=== PATIENT | female | born 1955 | race Caucasian/White ===

== ENCOUNTER → 2019-05-15 20:10 | Outpatient (CLI) | payer OTHER, SELFPAY ==
--- NOTE | 2019-05-15 | DI.RAD.S_ITS ---
PROCEDURE: XR LUMBAR SPINE 2-3V INDICATIONS: DORSALGIA TECHNIQUE: 3 views of the lumbar spine were acquired. COMPARISON: None. FINDINGS: Bones: There are 5 lumbar-type vertebral bodies. The lowest intervertebral disk space is designated as L5-S1. The vertebral body heights are well-maintained without evidence to suggest an acute compression fracture. The bone mineralization is within normal limits. Mild straightening of the normal lumbar lordosis is present without spondylolisthesis. Moderate multilevel degenerative changes of the lumbar spine are more prominent involving the lower lumbar facet joints. There also are moderate degenerative changes of the sacroiliac joints (left greater than right). Soft tissues: Calcifications within the pelvis probably represent phleboliths, but are not adequately evaluated. Surgical clips are seen within the right upper quadrant, suggesting prior cholecystectomy. Otherwise, the soft tissues of the imaged abdomen and pelvis are within normal limits. IMPRESSION: Moderate degenerative changes of the lumbar spine are more prominent involving the lower lumbar levels. Dictated by: Odilon Baig M.D. on 05/16/2019 at 9:08 Approved by: Odilon Baig M.D. on 05/16/2019 at 9:10
== END ==
PROVIDERS: Family Provider Internal Medicine; PCP Family Medicine; Visit Provider Family Medicine
DX: M54.9 Dorsalgia, unspecified (principal); M47.816 Spondylosis without myelopathy or radiculopathy, lumbar region
CPT/HCPCS: 72100

== ENCOUNTER → 2021-03-12 19:30 | Outpatient (CLI) | payer OTHER, SELFPAY ==
--- NOTE | 2021-03-12 19:33 | DI.MRI.S_ITS ---
PROCEDURE: MR LUMBAR SPINE WO CON INDICATIONS: SCIATICA LEFT SIDE TECHNIQUE: Noncontrast sagittal T1 spin echo and T2 fast echo, sagittal STIR, axial T1 and T2 fast spin echo through the lumbar spine. In cases with scoliosis, additional coronal T2 fast spin echo may be performed. COMPARISON: [facility], CR, XR LUMBAR SPINE 2-3V, 05/15/2019, 20:21. FINDINGS: Image quality: Excellent. Alignment and Curvature: There is trace retrolisthesis of L3 on L4. Bone Marrow: Marrow is of normal overall signal. Minimal multilevel degenerative endplate changes are. No acute vertebral body compression fractures. Spinal Cord: Conus medullaris terminates at the L1 level. Visualized cord demonstrates normal signal and size. Paraspinous Soft Tissues: No paravertebral masses. Discs: Moderate to severe desiccation is present throughout the lumbar spine. L1-L2: Mild disc bulge with mild spinal stenosis. No foraminal narrowing. Facet and ligamentum flavum hypertrophy are present. L2-L3: Mild disc bulge with cwfg-md-fqfhpksi spinal stenosis. Npzo-ub-jpqrwgog left and mild right foraminal narrowing with facet and ligamentum flavum hypertrophy. L3-L4: Mild right and minimal left foraminal narrowing with facet and ligamentum flavum hypertrophy. L4-L5: Mild disc bulge with severe spinal stenosis and canal compression. Severe right and moderate to severe left foraminal narrowing with facet/ligamentum flavum hypertrophy. There is slight flattening of the exiting L4 nerve roots on the right. L5-S1: Mild disc bulge without spinal stenosis. Minimal to mild left foraminal narrowing with facet/ligamentum flavum hypertrophy. IMPRESSION: 1. Multilevel disc bulges. 2. Multilevel spinal stenosis severe at L4-5 secondary to disc bulge with contributing affective facet/ligamentum flavum arthropathy. 3. Multilevel foraminal narrowing severe at L4-5 secondary to facet arthropathy. Dictated by: Sakina Patel M.D. on 03/15/2021 at 11:40 Approved by: Sakina Patel M.D. on 03/15/2021 at 11:57
== END ==
PROVIDERS: Family Provider Internal Medicine; PCP Family Medicine; Referring Provider Orthopaedic Surgery; Visit Provider Family Medicine
DX: M51.16 Intervertebral disc disorders with radiculopathy, lumbar region (principal); M51.17 Intervertebral disc disorders with radiculopathy, lumbosacral region; M47.26 Other spondylosis with radiculopathy, lumbar region; M48.061 Spinal stenosis, lumbar region without neurogenic claudication
CPT/HCPCS: 72148

== ENCOUNTER → 2021-07-08 16:24 | Outpatient (CLI) | payer OTHER, SELFPAY ==
--- NOTE | 2021-07-08 | DI.CT.S_ITS ---
PROCEDURE: CT SINUS SCREEN WO CON INDICATIONS: chronic sinusitis, unspecified TECHNIQUE: Noncontrast 3.0 mm axial images acquired from the frontal sinuses to the mid-sella, with coronal and sagittal reformats. For radiation dose reduction, the following was used: automated exposure control, adjustment of mA and/or kV according to patient size. COMPARISON: None. FINDINGS: Image quality: Excellent. Sinuses: There is minimal left maxillary sinus mucosal thickening. Minimal scattered mucosal thickening is present within the ethmoid air cells. No fluid levels or mucous retention cysts are identified. Ostiomeatal Complexes: Ostiomeatal complexes are patent. No Myrna cells. Miscellaneous: Visualized intra-orbital contents are normal. There is aeration of the vertical jossy of the middle turbinates bilaterally. Overall turbinate atrophy is noted. There are bilateral paradoxical middle turbinate curvature. No nasal septal deviation. IMPRESSION: 1. Minimal scattered mucosal thickening without fluid levels. Ostiomeatal complexes are patent. Dictated by: Sakina Patel M.D. on 07/08/2021 at 16:50 Approved by: Sakina Patel M.D. on 07/08/2021 at 16:51
== END ==
PROVIDERS: Family Provider Internal Medicine; PCP Family Medicine; Referring Provider Internal Medicine; Visit Provider Internal Medicine
DX: J32.9 Chronic sinusitis, unspecified (principal)
CPT/HCPCS: 70486

== ENCOUNTER → 2021-12-08 11:45 | Outpatient (CLI) | payer OTHER, SELFPAY ==
[2021-12-08 13:07] LABS: COVID19 -Nasal RAPID Negative (Negative)
== END ==
PROVIDERS: Family Provider Internal Medicine; PCP Family Medicine; Visit Provider Nurse Practitioner Family
DX: Z01.812 Encounter for preprocedural laboratory examination (principal); Z20.822 Contact with and (suspected) exposure to COVID-19
CPT/HCPCS: 87635

== ENCOUNTER 2021-12-09 12:20 | Day surgery (SDC) | payer OTHER, SELFPAY ==
[2021-12-07 13:06] VITALS: BMI 32.4
[2021-12-09] VITALS (10 sets, daily range): BP systolic 112–144; BP diastolic 57–83; PULSE 69–78; RESP 12–95; TEMP 36.4–36.7; O2SAT 12–98; BMI 31.3
[2021-12-09] MEDS: LACTATED RINGERS 1,000 ML 42 ML IV (13:35)
--- NOTE | 2021-12-09 13:45 | PM.PREOP ---
Pre-operative Note Interval Note History & Physical reviewed/Exam performed by Physician: Yes Changes to H&P: No
--- NOTE | 2021-12-09 13:46 | P.HP_ITS ---
History of Present Illness History of Present Illness Date Patient Seen: 12/09/21 Time Patient Seen: 13:46 Chief complaint: PRERNA Narrative: 66-year-old female with chronic history of nasal airway obstruction and postnasal drip presents for septoplasty and inferior turbinate reduction. She was last seen in clinic 09/23/2021, CT scan negative for underlying sinus disease 07/08/2021. Right septal deviation 2 to 3+. No interval cough, cold, or fever, and continues nasal BiPAP, held her Voltaren for the last 7 days. She is agreeable to using Tylenol alternating with Advil every 3 hours postoperatively and understands I wrote for 6 additional 50 mg tablets of Ultram to use if necessary. She received medical clearance from her PCP 09/27/2021. Patient History Medical History Arthritis Depression Fatigue due to sleep pattern disturbance Fibromyalgia GERD (gastroesophageal reflux disease) History of blood clots Hyperlipidemia Hypertension Migraines Obesity (BMI 30-39.9) Obstructive sleep apnea of adult Osteoarthritis Primary insomnia (07/08/18) Restless legs syndrome (RLS) Type 2 diabetes mellitus Surgical History History of carpal tunnel repair (11/07/12) History of carpal tunnel repair (08/07/13) History of knee replacement History of knee replacement (08/29/12) History of third molar tooth extraction History of tonsillectomy Status post delivery Status post delivery Status post delivery Status post cholecystectomy (01/31/12) Status post colonoscopy (08/25/11) Status post hysterectomy Status post rotator cuff repair Family & Social History Family History Brother Age: 62 Diabetes mellitus Depression Kidney disease Brother Age: 60 Depression Brother Age: 58 Depression MS (multiple sclerosis) Father Diabetes mellitus Heart disease Grandfather Alcoholic Smoker Grandmother Colon cancer Alcoholic Smoker Mother Age: 85 Hypertension High cholesterol Grandfather Stomach cancer Heart disease Grandmother Dementia Osteoporosis Sister Age: 56 MS (multiple sclerosis) Social History: household members spouse Meds Home Medications and Allergies Home Medications Medication Instructions Recorded Confirmed Type ResMed AirSense 10 Auto CPAP #1 ea 01/02/19 07/29/21 History amlodipine 5 mg tablet 5 mg PO DAILY 01/02/19 12/07/21 History aripiprazole 0.25 mg PO DAILY PRN 01/02/19 07/29/21 History ascorbic acid (vitamin C) 100 mg 100 mg PO BID tab 01/02/19 12/07/21 History tablet calcium carbonate 600 mg calcium 1,200 mg PO ONCE tab 01/02/19 12/07/21 History (1,500 mg) tablet (Calcium) cholecalciferol (vitamin D3) 50 2,000 unit PO DAILY 01/02/19 12/07/21 History mcg (2,000 unit) capsule diclofenac sodium 75 mg 75 mg PO BID 01/02/19 12/07/21 History tablet,delayed release hydroxyzine HCl 25 mg tablet 37.5 mg PO BEDTIME PRN #135 tab 01/02/19 12/07/21 Rx MDD 37.5mg losartan 100 1 tab PO DAILY 01/02/19 12/07/21 History mg-hydrochlorothiazide 25 mg tablet magnesium oxide 800 mg PO DAILY cap 01/02/19 12/07/21 History omeprazole magnesium 20 mg 20 mg PO DAILY 01/02/19 12/07/21 History tablet,delayed release (Prilosec OTC) rosuvastatin 20 mg tablet 20 mg PO DAILY 01/02/19 12/07/21 History topiramate 50 mg capsule,extended 50 mg PO DAILY 01/02/19 12/07/21 History release 24 hr tramadol 50 mg tablet 50 mg PO Q4-6H PRN 01/02/19 12/07/21 History tizanidine 2 mg tablet 2 mg PO BEDTIME #30 tab MDD 01/18/20 12/07/21 Rx uncertain of dosage hydromorphone 4 mg tablet 4 mg PO Q6H PRN 01/22/21 12/07/21 History (Dilaudid) trazodone 150 mg tablet 150 mg PO BEDTIME PRN 01/22/21 12/07/21 History lamotrigine 100 mg tablet 100 mg PO BEDTIME tab 07/29/21 12/07/21 History loratadine 10 mg tablet (Claritin) 10 mg PO DAILY 07/29/21 12/07/21 History nitrofurantoin macrocrystal 100 mg 100 mg PO BID PRN cap 07/29/21 12/07/21 History capsule solifenacin 5 mg tablet (Vesicare) 5 mg PO DAILY 07/29/21 12/07/21 History Allergies Allergy/AdvReac Type Severity Reaction Status Date / Time ERYTHROMYCIN Allergy Severe SEVERE Uncoded 07/29/21 16:11 STOMACH UPSET From NAPROXEN SOD Allergy Severe ANAPHALAXIS Uncoded 07/29/21 16:11 PENICILLIN Allergy Severe ANAPHALAXIS Uncoded 07/29/21 16:11 SULFA Allergy Severe ANAPHALAXIS Uncoded 07/29/21 16:11 CIPROFLOXACIN Allergy Mild ITCH,RASH Uncoded 07/29/21 16:11 From CELEXA Allergy Mild ITCH, RASH Uncoded 07/29/21 16:11 From NYSTATIN AND Allergy Mild ITCHING Uncoded 07/29/21 16:11 TRIAMCINOLONE ACET From PERCOCET Allergy Mild ITCH,RASH Uncoded 07/29/21 16:11 From VICODIN Allergy Mild N&V Uncoded 07/29/21 16:11 HYDROMORPHONE Allergy Mild HIVES,ITCHING-OK Uncoded 07/29/21 16:11 WITH BENADRYL Review of Systems Review of Systems Narrative: Negative except as listed in the HPI Exam Narrative Exam Narrative: Well-developed well-nourished female in no acute distress heart regular rate and rhythm without murmur, lungs clear to auscultation bilaterally Assessment & Plan Assessment & Plan narrative: Assessment: Nasal airway obstruction, septal deviation, inferior turbinate hypertrophy and postnasal drip, VARGHESE Plan: Following discussion of the material risks benefits complications and alternatives, she elected to proceed with septoplasty and inferior turbinate r eduction as an outpatient. Time Spent With Patient Critical Care time: I spent a total of [] minutes of critical care time on this patient's care today; this time is exclusive of procedural time.
--- NOTE | 2021-12-09 13:49 | PM.OP.1 ---
Operative Date/Time/Diagnoses Date of procedure: 12/09/21 Time of procedure: 16:20 Pre-op diagnosis: Nasal airway obstruction, septal deviation, inferior turbinate hypertrophy, postnasal drip, VARGHESE Post-op diagnosis: same Procedure & Clinicians Procedure: Septoplasty, bilateral inferior turbinate reduction via intramural cautery Same procedure as scheduled: Yes Indications: 66-year-old female with the above diagnoses incompletely managed with medical therapy presents for the above procedures. Following discussion of the material risks benefits complications and alternatives, she elected to proceed. Surgeon: Jessee Geller Click Yes if Unassisted: Yes Anesthesia Type: General and Local Operative Notes Findings: 2 to 3+ right septal deviation, Bilateral ITH. Relatively weak septal cartilage support prior to intervention, stable postoperatively. Prosthetic devices, grafts, tissues, transplants, or devices: Gray silastic splints Estimated Blood Loss (mL): 30 Procedure in detail: Following identification and confirmation of consent as well as preoperative Afrin nasal spray, the patient was brought to the operating room suite and placed in the supine position. General endotracheal anesthesia was administered. I infiltrated the septum widely bilaterally with 1% lidocaine 1 100,000 epinephrine followed by temporary packing with cotton with Afrin and 4% lidocaine. Following sterile prep and drape, the packing was removed and I performed a right lydia-transfixion incision, elevated the right mucoperichondrial and mucoperiosteal flap. I disarticulated near the bony/cartilaginous junction and elevated the left mucoperiosteal flap. Deviated portions of the perpendicular plate of the ethmoid and vomer were resected. The residual quadrilateral cartilage was further straightened by trimming it inferiorly as well as reducing the maxillary crest. No further manipulation of the residual quadrilateral cartilage was performed as it was grossly straight and I did not want to risk any destabilization of the already weak cartilage and nasal pyramid. Hemitransfixion incision was closed with interrupted 5 0 chromic followed by a running 4 0 plain gut mattress suture to reapproximate the septal flaps. At case completion, Gray air channel silastic splints were placed bilaterally, sutured anteriorly with a single 4 0 nylon. The head of each inferior turbinate had been previously infiltrated with additional local anesthetic and a 25 gauge spinal needle was used to impale the length of the turbinate, with cautery on a setting of 15 activated on slow withdrawal. The turbinates were then outfractured. The procedure completed, sponge and needle counts were correct and the patient was extubated in the operating room and taken to recovery room in stable condition without known complication. Postoperative care: Nasal saline every hour while awake, Vaseline or Polysporin to the nostrils at all times, begin irrigations t.i.d. beginning pod 1. Humidifier at the bedside blowing on the face. Tylenol alternating with Advil for pain control, oxycodone if necessary for breakthrough pain. Complications: none Post-operative Condition: stable Disposition: same day surgery Plan for aftercare: Nasal saline every hour while awake, begin irrigations t.i.d. tomorrow if desired. Polysporin to the nostrils at all times, Tylenol alternating with Advil for pain control, oxycodone for breakthrough pain. Elevate head of bed, no nose blowing, no straining for 2 weeks. Follow-up in 1 week for nasal splint removal.
[2021-12-09] MEDS: OXYMETAZOLINE NASAL SPRAY 15 ML 2 SPRAYS NASAL (14:14)
--- NOTE | 2021-12-09 14:44 | SUR.OPER ---
Supine on padded OR bed, head on pillow, arms secured on padded arm boards at <90 degrees abduction, legs uncrossed, safety belt at thigh, tape over blanket over lower legs. Supine on padded OR bed, head on pillow, arms padded and tucked at sides, legs uncrossed, safety belt at thigh, tape over blanket over lower legs .
[2021-12-09] MEDS: LIDOCAINE 1% W/EPI 20 ML INJ (15:21)
[2021-12-09] MEDS: LIDOCAINE 4% SOLN 50 ML 20 ML TOP (15:22)
[2021-12-09] MEDS: OXYCODONE IR 5 MG TABLET PO (16:44)
[2021-12-09] MEDS: hydrOXYzine pamoate 25 MG CAPSULE PO (16:44)
== END 2021-12-09 17:20 | disposition home or self-care (01) ==
PROVIDERS: Family Provider Internal Medicine; PCP Family Medicine; Referring Provider Otolaryngology; Visit Provider Otolaryngology
PROC: (CPT 30520; principal; 2021-12-09 13:45)
DX: J34.2 Deviated nasal septum (principal); J34.3 Hypertrophy of nasal turbinates; J98.8 Other specified respiratory disorders; G47.33 Obstructive sleep apnea (adult) (pediatric); R09.82 Postnasal drip; E11.9 Type 2 diabetes mellitus without complications; K21.9 Gastro-esophageal reflux disease without esophagitis; E78.00 Pure hypercholesterolemia, unspecified; I10 Essential (primary) hypertension
CPT/HCPCS: 30520; 30802; 82962; J1100; J2250; J2405; J2704; J3010

== ENCOUNTER → 2021-12-24 17:27 | Outpatient (CLI) | payer OTHER, SELFPAY ==
--- NOTE | 2021-12-24 17:31 | DI.RAD.S_ITS ---
PROCEDURE: XR CERVICAL SPINE 2V OR 3V INDICATIONS: PAIN TECHNIQUE: 3 view(s) of the cervical spine were acquired. COMPARISON: [facility], CR, XR SHOULDER RT MIN 2V, 12/24/2021, 17:24. FINDINGS: Bones: No fractures or dislocations to the C7-T1 level. The lateral masses of C1 appear intact on the odontoid view. No suspicious bony lesions. Moderate disc space narrowing is seen at C6-C7. The disc heights otherwise appear well-preserved. At least partially bridging anterior osteophytes are seen C4 through C7. Soft tissues: No prevertebral soft tissue swelling. The visualized lung apices are unremarkable. IMPRESSION: Cervical spine degenerative changes are seen, which are worst at C6-C7. Dictated by: Ruddy Fernandez M.D. on 12/24/2021 at 19:39 Approved by: Ruddy Fernandez M.D. on 12/24/2021 at 19:40
--- NOTE | 2021-12-24 17:31 | DI.RAD.S_ITS ---
PROCEDURE: XR SHOULDER RT MIN 2V INDICATIONS: PAIN TECHNIQUE: 3 views of the shoulder were acquired. COMPARISON: [facility], MR, SHOULDER WITHOUT CONTRAST, 10/08/2013, 13:04. [facility] [place], CR, XR SHOULDER 2+ VIEWS BILATERAL, 05/08/2020, 16:37. [facility] [place], SHOULDER MIN 2VW (RT), 11/07/2014, 15:20. FINDINGS: Bones: No fractures or dislocations. No suspicious bony lesions. Visualized ribs appear intact. Degenerative changes are seen, with mild subacromial spurring. Soft tissues: No suspicious soft tissue calcifications. The visualized lung demonstrates an unremarkable appearance. IMPRESSION: Mild degenerative changes are seen by plain film. If it would be helpful for clinical management decision making, please consider a dedicated, scheduled shoulder MRI for further evaluation (assuming that there is no contraindication). Dictated by: Ruddy Fernandez M.D. on 12/24/2021 at 19:13 Approved by: Ruddy Fernandez M.D. on 12/24/2021 at 19:15
== END ==
PROVIDERS: Family Provider Internal Medicine; PCP Family Medicine; Referring Provider Family Medicine; Visit Provider Family Medicine
DX: M47.22 Other spondylosis with radiculopathy, cervical region (principal); M25.511 Pain in right shoulder
CPT/HCPCS: 72040; 73030

== ENCOUNTER → 2022-01-15 15:07 | Outpatient (CLI) | payer OTHER, SELFPAY ==
--- NOTE | 2022-01-15 15:10 | DI.MG.S_ITS ---
BILATERAL DIGITAL SCREENING MAMMOGRAM 3D/2D WITH CAD: 01/15/2022 CLINICAL: Routine screening. Comparison is made to exams dated: 10/13/2014 mammogram, 04/20/2012 mammogram, and 05/04/2010 mammogram - [facility]. The tissue of both breasts is predominantly fatty. Current study was also evaluated with a Computer Aided Detection (CAD) system. No significant masses, calcifications, or other findings are seen in either breast. There has been no significant interval change. IMPRESSION: NEGATIVE There is no mammographic evidence of malignancy. A 1 year screening mammogram is recommended. This exam was interpreted at Station ID: [id number]. NOTE: For mammograms, a report in lay terms will be sent to the patient. Approximately 15% of breast malignancies will not be visualized mammographically. In the management of a palpable breast mass, a negative mammogram must not discourage biopsy of a clinically suspicious lesion. Electronically Signed By: George Hilliard M.D., jr/jean-pierre:01/17/2022 09:44:15 letter sent: Normal Exam ACR BI-RADS Category 1: Negative 3341F
== END ==
PROVIDERS: Family Provider Internal Medicine; PCP Family Medicine; Referring Provider Family Medicine; Visit Provider Family Medicine
DX: Z12.31 Encounter for screening mammogram for malignant neoplasm of breast (principal)
CPT/HCPCS: 77063; 77067

== ENCOUNTER → 2022-01-28 18:17 | Outpatient (CLI) | payer OTHER, SELFPAY ==
--- NOTE | 2022-01-28 | DI.MRI.S_ITS ---
PROCEDURE: MR CERVICAL SPINE WO CON INDICATIONS: Radiculopathy, cervical region TECHNIQUE: Noncontrast sagittal T1 spin echo and T2 fast spin echo, sagittal STIR, foraminal oblique sagittal T2 fast spin echo, and axial gradient echo or T2 fast spin echo through the cervical spine. COMPARISON: None. FINDINGS: Normal cervical spine vertebral body height, alignment, and signal intensity. No suspicious focal marrow signal abnormality or bone marrow edema. Normal morphology and signal intensity of the cervical cord. There is no syrinx. Prevertebral and paraspinous soft tissues are within normal limits. C2-C3: Mild to moderate neural foraminal stenosis on the right due to facet and uncovertebral hypertrophy. No neural foraminal narrowing on the left. No spinal canal stenosis. C3-C4: No spinal canal stenosis. Mild neural foraminal narrowing on the left due to facet and uncovertebral hypertrophy. C4-C5: Mild bilateral neural foraminal narrowing due to facet and uncovertebral hypertrophy. No spinal canal stenosis. C5-C6: Mild bilateral neural foraminal stenosis due to facet and uncovertebral hypertrophy. No spinal canal stenosis. C6-C7: Mild spinal canal stenosis with flattening of the ventral cord, due to posterior disc-osteophyte complex. Facet and uncovertebral hypertrophy contribute to moderate-severe bilateral neural foraminal stenosis. C7-T1: No spinal canal or neural foraminal stenosis. IMPRESSION: Moderate to severe neural foraminal stenosis bilaterally at C6-C7. Oeex-ov-oaovezhh neural foraminal stenosis on the right at C2-C3. Dictated by: George Hilliard M.D. on 01/31/2022 at 9:48 Approved by: George Hilliard M.D. on 01/31/2022 at 9:51
== END ==
PROVIDERS: Family Provider Internal Medicine; PCP Family Medicine; Referring Provider Family Medicine; Visit Provider Family Medicine
DX: M54.12 Radiculopathy, cervical region (principal); M48.02 Spinal stenosis, cervical region
CPT/HCPCS: 72141

== ENCOUNTER → 2023-01-05 15:21 | Outpatient (CLI) | payer OTHER, SELFPAY ==
--- NOTE | 2023-01-25 08:45 | PM.CARDMON.1 ---
Motor Generator Set Operator Report Referral & Results Date Patient Seen: 02/02/23 Requesting provider: Elie Moore Indication: Cardiac arrhythmia Duration of monitoring (days): 13 Diary information: There were 6 patient triggered events and 4 patient diary entries All 10 of these patient events were variably associated with (within 45 seconds) sinus rhythm and SVT Data: Minimum heart rate identified was 40 beats per minute at 06:42 on 01/15/2023 Maximum sinus heart rate was 145 beats per minute at 18:07 on 01/09/2023 Maximum overall heart rate was 152 beats per minute at 21:20 on 01/15/2023 during a run of SVT Less than 1% of identified beats were ventricular or supraventricular ectopic in origin, which would classify them as rare. There were 4 runs of SVT/atrial tachycardia with the fastest being a 16 beat run above rate 152 beats per minute, this was also the longest run No pauses of 3 seconds or longer episodes of atrial fibrillation identified on this study Impression: 13+ day quality assurance monitor chassis demonstrating very rare very brief runs of SVT as a possible source patient's symptoms No other more significant dysrhythmias identified Clinical correlation suggested
== END ==
PROVIDERS: Family Provider Internal Medicine; PCP Family Medicine; Referring Provider Family Medicine; Visit Provider Family Medicine
DX: I49.8 Other specified cardiac arrhythmias (principal)
CPT/HCPCS: 93246; 93248

== ENCOUNTER → 2023-01-23 16:39 | Outpatient (CLI) | payer OTHER, SELFPAY ==
--- NOTE | 2023-01-23 16:41 | DI.MG.S_ITS ---
BILATERAL DIGITAL SCREENING MAMMOGRAM 3D/2D WITH CAD: 01/23/2023 CLINICAL: Routine screening. Comparison is made to exams dated: 01/15/2022 mammogram, 10/13/2014 mammogram, and 04/20/2012 mammogram - [facility]. Both breasts are almost entirely fatty (category a/<25% glandular tissue). Current study was also evaluated with a Computer Aided Detection (CAD) system. There is a possible new architectural distortion in the right breast at 11 o'clock middle depth. No other significant masses, calcifications, or other findings are seen in either breast. IMPRESSION: INCOMPLETE: NEEDS ADDITIONAL IMAGING EVALUATION The possible new architectural distortion in the right breast is indeterminate. Additional views with possible ultrasound are recommended. Based on the Tyrer Cuzick model (a risk assessment model) the patient's lifetime risk is 2.8% and her 10 year risk is 1.4%. According to the ACR, ACS, and NCCN guidelines, an annual breast MRI exam along with mammogram is recommended if the patient's lifetime risk is 20% or greater. This exam was interpreted at Station ID: [id number]. NOTE: For mammograms, a report in lay terms will be sent to the patient. Approximately 15% of breast malignancies will not be visualized mammographically. In the management of a palpable breast mass, a negative mammogram must not discourage biopsy of a clinically suspicious lesion. Electronically Signed By: George Hilliard M.D., jr/jean-pierre:01/24/2023 12:19:59 letter sent: Additional Imaging Needed ACR BI-RADS Category 0: Incomplete 3340F
== END ==
PROVIDERS: Family Provider Internal Medicine; PCP Family Medicine; Referring Provider Family Medicine; Visit Provider Family Medicine
DX: Z12.31 Encounter for screening mammogram for malignant neoplasm of breast (principal)
CPT/HCPCS: 77063; 77067

== ENCOUNTER → 2023-02-16 13:28 | Outpatient (CLI) | payer OTHER, SELFPAY ==
--- NOTE | 2023-02-16 | DI.US.S_ITS ---
LIMITED ULTRASOUND OF RIGHT BREAST: 02/16/2023 CLINICAL: Patient returns today to evaluate a focal asymmetry in the right breast. Comparison is made to exams dated: 02/16/2023 mammogram, 01/23/2023 mammogram, and 01/15/2022 mammogram - [facility]. Real-time ultrasound of the right breast 9-11 o'clock region was performed. Martinez scale images of the real-time examination were reviewed. No significant abnormalities were seen sonographically in the right breast. IMPRESSION: NEGATIVE There is no sonographic evidence of malignancy. There is no abnormality seen in the right breast to correspond with the mammography finding which is consistent with normal fibroglandular tissue. Return to annual mammogram screening schedule is recommended. This exam was interpreted at Station ID: [id number]. Electronically Signed By: Patrick elliott/jean-pierre:02/16/2023 15:06:06 letter sent: Normal Exam Ultrasound BI-RADS: 1 Negative
--- NOTE | 2023-02-16 | DI.MG.S_ITS ---
UNILATERAL RIGHT DIGITAL DIAGNOSTIC MAMMOGRAM 3D/2D WITH ADDITIONAL VIEWS: 02/16/2023 CLINICAL: Additional evaluation requested from prior study. Comparison is made to exams dated: 01/23/2023 mammogram, 01/15/2022 mammogram, and 10/13/2014 mammogram - [facility]. The right breast is heterogeneously dense, which may obscure small masses (category c / 51-75% glandular tissue). The possible architectural distortion in the right breast at 11 o'clock middle depth is not reproduced and presumably represented superimposed breast tissue. No other significant masses or calcifications are seen in the breast. IMPRESSION: INCOMPLETE: NEEDS ADDITIONAL IMAGING EVALUATION An ultrasound is recommended to confirm the no longer seen architectural distortion in the right breast middle depth. Based on the Tyrer Cuzick model (a risk assessment model) the patient's lifetime risk is 6.4% and her 10 year risk is 3.2%. According to the ACR, ACS, and NCCN guidelines, an annual breast MRI exam along with mammogram is recommended if the patient's lifetime risk is 20% or greater. This exam was interpreted at Station ID: [id number]. NOTE: For mammograms, a report in lay terms will be sent to the patient. Approximately 15% of breast malignancies will not be visualized mammographically. In the management of a palpable breast mass, a negative mammogram must not discourage biopsy of a clinically suspicious lesion. Electronically Signed By: Patrick elliott/[email or web address]-pierre:02/16/2023 15:04:01 ACR BI-RADS Category 0: Incomplete [id number]
== END ==
PROVIDERS: Family Provider Internal Medicine; PCP Family Medicine; Referring Provider Family Medicine; Visit Provider Family Medicine
DX: R92.8 Other abnormal and inconclusive findings on diagnostic imaging of breast (principal)
CPT/HCPCS: 76642; 77065; G0279

== ENCOUNTER → 2023-04-14 20:22 | Outpatient (CLI) | payer OTHER, SELFPAY ==
--- NOTE | 2023-04-14 20:30 | DI.RAD.S_ITS ---
PROCEDURE: XR LUMBAR SPINE 2-3V INDICATIONS: M54.30 TECHNIQUE: 3 views of the lumbar spine were acquired. COMPARISON: [facility], MR, MR LUMBAR SPINE WO CON, 03/12/2021, 19:43. [facility], CR, XR LUMBAR SPINE 2-3V, 05/15/2019, 20:21. FINDINGS: Bones: 5 [id number] vertebrae are present. No vertebral body compression fractures. No suspicious bony lesions. Age-appropriate lower thoracic spine degenerative changes are seen. Minimal levoconvex scoliotic curvature is seen. Minimal retrolisthesis can be seen at L3-L4. There is moderate disc space narrowing seen at L2-L3 and L4-L5, with mild disc space narrowing seen elsewhere. Lower lumbar spine facet arthropathy is seen. Soft tissues: Overlying bowel gas pattern is normal. No suspicious soft tissue calcifications. White upper quadrant postoperative clips are seen. IMPRESSION: Lumbar spine degenerative changes are seen, which are worst by plain film at L2-L3 and L4-L5. Dictated by: Ruddy Fernandez M.D. on 04/14/2023 at 20:09 Approved by: Rdudy Fernandez M.D. on 04/14/2023 at 20:11
== END ==
PROVIDERS: Family Provider Internal Medicine; PCP Family Medicine; Referring Provider Family Medicine; Visit Provider Family Medicine
DX: M54.30 Sciatica, unspecified side (principal)
CPT/HCPCS: 72100

== ENCOUNTER → 2023-06-08 18:24 | Outpatient (CLI) | payer OTHER, SELFPAY ==
--- NOTE | 2023-06-08 18:28 | DI.RAD.S_ITS ---
PROCEDURE: XR FOOT LT MIN 3V INDICATIONS: Pronated foot TECHNIQUE: 3 views of the foot were acquired. COMPARISON: None. FINDINGS: Bones: No fractures or dislocations. No suspicious bony lesions. Degenerative changes are present involving multiple interphalangeal joints and talonavicular joint, worst at the 1st metatarsophalangeal joint. Soft tissues: No tibiotalar joint effusion. Achilles tendon appears normal. IMPRESSION: Degenerative changes of the foot, worse at the 1st MTP joint. Dictated by: Toby Long M.D. on 06/09/2023 at 9:49 Approved by: Toby Long M.D. on 06/09/2023 at 9:52
== END ==
PROVIDERS: Family Provider Internal Medicine; PCP Family Medicine; Referring Provider Podiatrist; Visit Provider Podiatrist
DX: M21.6X2 Other acquired deformities of left foot (principal)
CPT/HCPCS: 73630

== ENCOUNTER → 2023-07-07 19:00 | Outpatient (CLI) | payer OTHER, SELFPAY ==
--- NOTE | 2023-07-07 | DI.MRI.S_ITS ---
PROCEDURE: MR ANKLE LT WO CON INDICATIONS: POSSIBLE POSTERIOR TIBIALIS TEAR TECHNIQUE: Noncontrast sagittal T1 spin echo and T2 fast spin echo with fat saturation, axial proton density fast spin echo and T2 fast spin echo with fat saturation, coronal T1 spin echo and T2 fast spin echo with fat saturation through the ankle/hindfoot. COMPARISON: [facility], CR, XR FOOT LT MIN 3V, 06/08/2023, 18:32. FINDINGS: Image quality: Excellent. Bones and joints: No bone marrow contusions or fractures. No hindfoot coalitions. Sagging of the midfoot is suspicious for pes planus. Moderate degenerative changes are seen at the talonavicular and navicular cuneiform articulations with subchondral cystic changes and marginal osteophytes. There are [id number] degenerative changes at the tarsometatarsal joints. A chronic osteochondral lesion is seen at the lateral talar dome measuring approximately 5 x 4 x 4 mm with subchondral cystic changes and irregularity of the overlying subchondral plate as well as full-thickness cartilage loss. No loose or unstable osteochondral fragment is seen. Anteriorly projecting osteophytes are seen at the tibial plafond that could contribute to anterior osseous impingement. Degenerative changes are seen at the fibula and the lateral aspect of the talus and calcaneus, suggesting hindfoot valgus. Medial structures: There is chronic high-grade partial versus complete tearing of the deep fibers of the deltoid ligament and thickening and immediate signal intensity within the tibiospring ligament as well as the superomedial band of the spring ligament, which are bowed medially around the talar head. Mild thickening of the distal posterior tibialis tendon is consistent with tendinosis without tendon tearing. The flexor digitorum longus and flexor hallucis longus tendons are intact. The posterior tibial neurovascular bundle appears normal within the tarsal tunnel, without extrinsic mass effect. Lateral structures: Remote prior sprains of the anterior and posterior tibiofibular ligaments. Nonedematous ossification adjacent to the distal fibular tip are most likely the sequela of a prior avulsion injury involving the anterior talofibular ligament insertion. The calcaneofibular ligament appears thickened and irregular, compatible with prior partial tearing. The posterior talofibular ligament fibers appear indistinct. There is chronic longitudinal split tearing of the peroneus brevis tendon at the level of the distal fibula with tendon reconstitution at the level of the calcaneocuboid articulation. Moderate peroneus longus tendinosis. There is effacement of the normal fat signal in the sinus tarsi. Anterior structures: The tibialis anterior, extensor hallucis longus, and extensor digitorum longus tendons appear intact. The dorsal talonavicular ligament appears intact. Posterior and plantar structures: Achilles tendon demonstrates mild tendinosis. The proximal plantar fascia is thickened without surrounding edema, consistent with chronic fasciitis. There is fatty infiltration of the foot musculature, consistent with chronic denervation changes. IMPRESSION: 1. Pes planus alignment and hindfoot valgus. Findings may be confirmed with weight-bearing radiographs if indicated clinically. 2. Chronic grade 2-3 sprain of the deltoid ligament. Low-grade sprain of the superomedial band of the spring ligament. 3. Moderate posterior tibialis insertional tendinosis without tenosynovitis or acute tendon tearing. 4. Chronic osseous avulsion injury of the anterior talofibular ligament with suspected chronic complete tearing. Diffuse grade 1-2 sprains of the lateral ankle ligaments. 5. Chronic longitudinal split tearing of the peroneus brevis tendon at the level of the distal fibula with tendon reconstitution at the level of the calcaneocuboid articulation. Moderate peroneus longus tendinosis. 6. Chronic osteochondral lesion at the lateral talar dome measuring up to 5 mm with subchondral cystic changes and full-thickness cartilage loss but no loose osteochondral fragment. 7. Moderate degenerative changes throughout the hindfoot and midfoot. 8. Mild Achilles tendinosis. Moderate chronic proximal plantar fasciitis. Approved by: Patrick Brink M.D. on 07/10/2023 at 9:10
--- NOTE | 2023-07-07 | DI.MRI.S_ITS ---
PROCEDURE: MRFOOT LT WO CON INDICATIONS: POSSIBLE POSTERIOR TIBIALIS TEAR TECHNIQUE: Noncontrast sagittal T1 spin echo and T2 fast spin echo with fat saturation, long-axis T1 spin echo and STIR, short-axis T1 spin echo and T2 fast spin echo with fat saturation through the forefoot. COMPARISON: [facility], CR, XR FOOT LT MIN 3V, 06/08/2023, 18:32. FINDINGS: Image quality: Excellent. Bones and joints: No bone marrow contusions or metatarsal stress fractures. Moderate to severe degenerative changes are seen at the 1st metatarsophalangeal joint. Scattered degenerative changes are seen at the interphalangeal joints of the toes. Hallux sesamoids are normally aligned with degenerative changes present. [id number] degenerative changes are seen at the tarsometatarsal joints. Degenerative changes also seen in the talonavicular and navicular cuneiform articulations. No intraosseous lesions. Soft tissues: The visualized plantar foot muscles demonstrate diffuse fatty infiltration, consistent with chronic denervation changes. Visualized flexor and extensor tendons appear intact, without tenosynovitis. The distal insertions of the peroneus brevis and longus tendons appear intact. The principal Lisfranc ligament appears intact. No soft tissue ganglion cysts or bursal fluid collections. Sagittal images demonstrate no evidence for plantar plate tears. IMPRESSION: 1. Moderate to severe 1st metatarsophalangeal osteoarthrosis. Scattered additional [id number]-[id number] degenerative changes throughout the midfoot and forefoot. 2. Diffuse fatty infiltration of the intrinsic foot musculature is consistent with chronic denervation changes. 3. No significant ligament or tendon tearing is seen in the forefoot. Approved by: Patrick Brink M.D. on 07/10/2023 at 9:10
== END ==
PROVIDERS: Family Provider Internal Medicine; PCP Family Medicine; Referring Provider Podiatrist; Visit Provider Podiatrist
DX: M76.822 Posterior tibial tendinitis, left leg (principal); M79.672 Pain in left foot; M21.42 Flat foot [pes planus] (acquired), left foot; M21.072 Valgus deformity, not elsewhere classified, left ankle; S93.422A Sprain of deltoid ligament of left ankle, initial encounter; S93.492A Sprain of other ligament of left ankle, initial encounter; M72.2 Plantar fascial fibromatosis; M19.072 Primary osteoarthritis, left ankle and foot
CPT/HCPCS: 73718; 73721

== ENCOUNTER → 2023-08-21 18:29 | Outpatient (CLI) | payer OTHER, SELFPAY ==
--- NOTE | 2023-08-21 | DI.RAD.S_ITS ---
PROCEDURE: XR SHOULDER LT MIN 2V INDICATIONS: SHOULDER PAIN TECHNIQUE: 3 views of the shoulder were acquired. COMPARISON: CR, CHEST 2 VIEW, 11/24/2011, 16:50. [facility], CR, XR SHOULDER RT MIN 2V, 12/24/2021, 17:24. FINDINGS: Bones: No fractures or dislocations. No suspicious bony lesions. Visualized ribs appear intact. Moderate acromioclavicular and mild glenohumeral joint space narrowing with periarticular osteophyte formation. Soft tissues: Calcifications seen along the superior margin of the humeral head. IMPRESSION: 1. Moderate acromioclavicular and mild glenohumeral joint degeneration. 2. Mild rotator cuff calcific tendinitis versus calcific bursitis. Dictated by: Shoaib Negrete [facility] Interpreted: Tres Graham MD on 08/21/2023 at 20:40 Approved by: Tres Graham M.D. on 08/23/2023 at 6:49
--- NOTE | 2023-08-21 | DI.RAD.S_ITS ---
PROCEDURE: XR SHOULDER RT MIN 2V INDICATIONS: SHOULDER PAIN TECHNIQUE: 3 views of the shoulder were acquired. COMPARISON: [facility], CR, XR SHOULDER LT MIN 2V, 08/21/2023, 18:37. [facility], CR, XR SHOULDER RT MIN 2V, 12/24/2021, 17:24. FINDINGS: Bones: No fractures or dislocations. No suspicious bony lesions. Visualized ribs appear intact. Moderate acromioclavicular and mild glenohumeral joint space narrowing with periarticular osteophyte formation. Soft tissues: No suspicious soft tissue calcifications. IMPRESSION: Moderate acromioclavicular and mild glenohumeral joint degeneration. Dictated by: Shoaib Negrete [facility] Interpreted: Tres Graham MD on 08/21/2023 at 20:42 Approved by: Tres Graham M.D. on 08/23/2023 at 6:49
== END ==
PROVIDERS: Family Provider Internal Medicine; PCP Family Medicine; Referring Provider Family Medicine; Visit Provider Family Medicine
DX: M19.011 Primary osteoarthritis, right shoulder (principal); M19.012 Primary osteoarthritis, left shoulder; M25.511 Pain in right shoulder; M25.512 Pain in left shoulder
CPT/HCPCS: 73030

== ENCOUNTER → 2023-10-14 12:08 | Outpatient (CLI) | payer OTHER, SELFPAY ==
--- NOTE | 2023-10-14 12:11 | DI.MRI.S_ITS ---
PROCEDURE: MR SHOULDER RT WO CON INDICATIONS: Right shoulder pain TECHNIQUE: Noncontrast oblique coronal T2 fast spin echo with fat saturation, oblique sagittal T1 spin echo and T2 fast spin echo with fat saturation, axial T1 spin echo and T2 fast spin echo with fat saturation through the shoulder. COMPARISON: [facility], MR, SHOULDER WITHOUT CONTRAST, 10/08/2013, 13:04. FINDINGS: Image quality: Excellent. Rotator cuff: There is full-thickness rupture involving anterior fibers of distal supraspinatus at its insertion on the humeral head with up to 2.3 cm medial retraction of torn tendon fibers to the level of acromion. Low to moderate grade articular surface partial-thickness tear involving mid to posterior fibers of distal supraspinatus is seen with focal full-thickness perforation involving posterior fibers of distal supraspinatus approximately 2.1 cm from its insertion on humeral head with up to 7 mm medial retraction of torn tendon fibers. Distal infraspinatus tendinosis is seen. Low-grade intrasubstance partial-thickness tear involving distal subscapularis is noted. Sagittal images demonstrate mild to moderate supraspinatus muscle atrophy. Bones and bursae: No bone marrow contusions or fractures. Moderate acromioclavicular joint osteoarthritic changes are seen with joint space narrowing and downward osteophyte formation depressing the musculotendinous junction of supraspinatus. Superior migration of humeral head in relation to glenoid is noted. The acromion demonstrates conventional anatomy, without an os acromiale. Moderate amount of subacromial subdeltoid bursal fluid is seen, no gross loose bodies. Capsule and soft tissues: Fraying of superior anterior labrum with subtle signal abnormality at 12 to 2 o'clock position is seen suggestive of superior anterior labral tear. The long head of the biceps tendon appears thickened intra-articularly. The rotator interval appears normal, without fibrosis. The coracohumeral ligament is normal in thickness. IMPRESSION: 1. Full-thickness rupture involving anterior fibers of distal supraspinatus at its insertion on the humeral head with up to 2.3 cm medial retraction of torn tendon fibers to the level of acromion. Low to moderate grade articular surface partial-thickness tear involving mid to posterior fibers of distal supraspinatus with focal full-thickness perforation involving posterior fibers of distal supraspinatus approximately 2.1 cm from its insertion on the humeral head and up to 7 mm medial retraction of torn tendon fibers. Mild to moderate supraspinatus muscle atrophy. 2. Distal infraspinatus tendinosis. Low-grade intrasubstance partial-thickness tear involving superior to mid fibers of distal subscapularis. 3. Superior migration of humeral head in relation to glenoid. Moderate acromioclavicular joint osteoarthritis. No acute fracture or dislocation. Moderate amount of subacromial subdeltoid bursal fluid, no gross loose bodies. 4. Suggestion of superior anterior labral tear at 12 to 2 o'clock position. 5. Proximal intra-articular portion of long head of biceps tendinosis. Dictated by: Jarrett Aguilar M.D. on 10/16/2023 at 8:28 Approved by: Jarrett Aguilar M.D. on 10/16/2023 at 8:33
== END ==
PROVIDERS: Family Provider Internal Medicine; PCP Family Medicine; Referring Provider Orthopaedic Surgery; Visit Provider Orthopaedic Surgery
DX: M75.121 Complete rotator cuff tear or rupture of right shoulder, not specified as traumatic (principal); M19.011 Primary osteoarthritis, right shoulder; M25.511 Pain in right shoulder
CPT/HCPCS: 73221

== ENCOUNTER → 2023-11-24 18:15 | Outpatient (CLI) | payer OTHER, SELFPAY | PROVIDERS: Family Provider Internal Medicine; PCP Family Medicine; Referring Provider Orthopaedic Surgery; Visit Provider Orthopaedic Surgery | DX: Z01.812 Encounter for preprocedural laboratory examination (principal); N39.0 Urinary tract infection, site not specified; Z01.818 Encounter for other preprocedural examination | CPT/HCPCS: 93005 ==

== ENCOUNTER → 2023-11-28 16:19 | Outpatient (CLI) | payer OTHER, SELFPAY ==
[2023-11-28 17:05] LABS: Appearance Urine UA CLEAR; Bilirubin Urine UA NEGATIVE (NEGATIVE); Color Urine UA YELLOW; Glucose Urine UA NEGATIVE (Negative); Ketones Urine UA NEGATIVE (NEGATIVE); Leukocyte Esterase Urine UA TRACE (NEGATIVE); Nitrite Urine UA NEGATIVE (Negative); Occult Blood Urine UA NEGATIVE (Negative); Protein Urine UA NEGATIVE (Negative); Urobilinogen Urine UA 0.2 E.U./dL (0.2)
[2023-11-28 17:09] LABS: pH Urine UA 5.5 (4.5-8.0)
[2023-11-28 17:17] LABS: Bacteria Urine Occasional (0-1); Culture Indicated Urine Cult Not Indicated; RBC Urine 0-1/HPF (0-5/HPF); Squamous Epithelial Cell Urine 0-1 /HPF (0-5/HPF); WBC Urine 0-1/HPF (0-5/HPF)
[2023-11-28 17:29] LABS: BUN Creatinine Ratio 18.3 (6-22); Blood Urea Nitrogen 17 mg/dL (7-17); Calcium 9.8 mg/dL (8.4-10.2); Carbon Dioxide 26 mmol/L (22-32); Chloride 101 mmol/L (98-107); Estimated Glomerular Filt Rate > 60 mL/min (>60); Glucose 104 mg/dL (80-110); HEMOLYSIS < 15 (0-50); Potassium 4.2 mmol/L (3.4-5.1); Sodium 137 mmol/L (137-145)
[2023-11-28 17:47] LABS: Add Manual Diff / Slide Review NO; Basophils Absolute Auto 100 /uL (0-100); Basophils Percent Auto 1.2 % (0-2); Eosinophils Absolute Auto 200 /uL (0-450); Hematocrit 40.4 % (36-46); Hemoglobin 13.8 g/dL (12.0-16.0); Lymphocytes Absolute Auto 2600 /uL (1100-4500); Lymphocytes Percent Auto 37.4 % (25-40); Mean Corpuscular HGB Conc 34.1 % (30-36); Mean Corpuscular Hemoglobin 31.3 PG (26-34); Mean Corpuscular Volume 91.9 fL (80-100); Monocytes Absolute Auto 600 /uL (0-900); Monocytes Percent Auto 8.4 % (3-14); Neutrophils Absolute Auto 3400 /uL (1500-7000); Platelet Count 199 X10^3/uL (150-400); Red Blood Cell Count 4.39 X10^6/uL (4.0-5.2); Red Cell Distribution Width 12.5 % (11.6-14.8); White Blood Cell Count 6.9 X10^3/uL (4.5-11.0)
== END ==
PROVIDERS: Family Provider Internal Medicine; PCP Family Medicine; Referring Provider Orthopaedic Surgery; Visit Provider Orthopaedic Surgery
DX: Z01.812 Encounter for preprocedural laboratory examination (principal); N39.0 Urinary tract infection, site not specified
CPT/HCPCS: 36415; 80048; 81001; 85025

== ENCOUNTER → 2023-12-03 14:37 | Outpatient (CLI) | payer OTHER, SELFPAY ==
--- NOTE | 2023-12-03 | DI.CT.S_ITS ---
PROCEDURE: CT SHOULDER RIGHT WITHOUT CON INDICATIONS: Rt shoulder pain TECHNIQUE: Noncontrast 1-1.5 mm thick sections acquired from the acromioclavicular joint to the inferior scapula, with coronal and sagittal reformatting. COMPARISON: Right shoulder MRI 10/16/2023. FINDINGS: Image quality: Diagnostic Bones: No acute fracture. There is moderate acromioclavicular osteoarthrosis with joint space narrowing and inferior osteophyte formation. There is again seen superior migration of the humeral head relative to the glenoid . Moderate glenohumeral osteoarthrosis with anterior osteophyte formation. Soft tissues: No significant joint effusion. No suspicious soft tissue calcification or abnormality. IMPRESSION: Moderate acromioclavicular and glenohumeral joint osteoarthrosis. No acute osseous abnormality. If there is clinical concern for internal derangement, recommend further evaluation with MRI. Approved by: Niya Velazquez M.D. on 12/03/2023 at 21:07
== END ==
LOC: CT 14:39
PROVIDERS: Family Provider Internal Medicine; PCP Family Medicine; Referring Provider Orthopaedic Surgery; Visit Provider Orthopaedic Surgery
DX: M19.011 Primary osteoarthritis, right shoulder (principal)
CPT/HCPCS: 73200

== ENCOUNTER → 2023-12-30 13:05 | Outpatient (CLI) | payer OTHER, SELFPAY ==
--- NOTE | 2023-12-30 | DI.MRI.S_ITS ---
PROCEDURE: MR LUMBAR SPINE WO/W CON INDICATIONS: Sciatica, unspecified side TECHNIQUE: Noncontrast sagittal T1 spin echo and T2 fast spin echo, sagittal STIR, axial T1 and T2 fast spin echo through the lumbar spine. In cases with scoliosis, additional coronal T2 fast spin echo may be performed. After the administration of contrast, sagittal and axial T1 spin echo with fat saturation through the lumbar spine. COMPARISON: None. FINDINGS: Image quality: Excellent. Alignment and curvature: There is normal bony alignment. Marrow: Marrow is of normal overall signal. No acute vertebral body compression fractures. No suspicious marrow enhancement. Spinal cord: Conus medullaris terminates at the L1 level. Visualized spinal cord demonstrates normal signal, without suspicious enhancement. Paraspinous soft tissues: No paravertebral masses or abnormal enhancement. T12-L1: Normal appearance. L1-L2: Disc space narrowing and disc bulge with hypertrophic facet joints results in mild central stenosis. No foraminal stenosis L2-L3: Disc space narrowing and posterior disc bulge with hypertrophic facet joints. Mild central stenosis. No foraminal stenosis L3-L4: Disc space narrowing with hypertrophic facet joints and ligamentum flavum laxity combined result in moderate central stenosis. Moderate bilateral foraminal stenosis. L4-L5: Disc space narrowing with circumferential disc bulge and hypertrophic facet joints combined with ligamentum flavum laxity result in severe central stenosis. Mild bilateral foraminal stenosis. L5-S1: Disc height is preserved. The hypertrophic facet joints noted. No central or foraminal stenosis. IMPRESSION: Multilevel degenerative disc disease and arthropathy results in varying degrees of central and foraminal stenosis including severe central stenosis L4-5 Approved by: Skip Lewis M.D. on 01/01/2024 at 13:33
== END ==
LOC: MRI 13:06
PROVIDERS: Family Provider Internal Medicine; PCP Family Medicine; Referring Provider Family Medicine; Visit Provider Family Medicine
DX: M51.16 Intervertebral disc disorders with radiculopathy, lumbar region (principal); M47.26 Other spondylosis with radiculopathy, lumbar region
CPT/HCPCS: 72158

== ENCOUNTER 2024-01-12 06:34 | Day surgery (SDC) | payer OTHER, SELFPAY ==
[2023-12-13 13:46] VITALS: BMI 34.2
[2024-01-12] VITALS (7 sets, daily range): BP systolic 123–158; BP diastolic 68–90; PULSE 77–89; RESP 14–16; TEMP 36.2–36.9; O2SAT 93–98; BMI 34.2
--- NOTE | 2024-01-12 06:00 | DI.RAD.S_ITS ---
PROCEDURE: XR SHOULDER RT MIN 2V INDICATIONS: TSA TECHNIQUE: 3 views of the shoulder were acquired. COMPARISON: [facility], , XR SHOULDER RT MIN 2V, 08/21/2023, 18:37. FINDINGS: Bones: Total right shoulder arthroplasty in good position. No evidence of fracture or hardware failure. Soft tissues: Overlying postprocedural soft tissue air IMPRESSION: Total right shoulder arthroplasty in good position Approved by: Skip Lewis M.D. on 01/12/2024 at 18:11
[2024-01-12] MEDS: SCOPOLAMINE 1 PATCH TOP (07:02)
[2024-01-12] MEDS: LACTATED RINGERS 1,000 ML 42 ML IV ×2 (07:03→09:35)
--- NOTE | 2024-01-12 07:34 | PM.HP.1 ---
History of Present Illness History of Present Illness Date Patient Seen: 01/12/24 Time Patient Seen: 07:41 Chief complaint: OPB Narrative: Patient is here for her right shoulder reverse total shoulder arthroplasty. She has not had any changes since I last saw her. She has been using ice machine at home for pain control. She is accompanied by her today. Denies any recent nausea, vomiting, diarrhea, fevers, chills or any other constitutional symptoms. No other complaints at this time. [facility] Medical History History of COVID-19 (06/2023) Pulmonary embolism (2008) Arthritis Depression History of blood clots Fatigue due to sleep pattern disturbance Primary insomnia (07/08/18) Osteoarthritis Hypertension Fibromyalgia Migraines Type 2 diabetes mellitus Obesity (BMI 30-39.9) Hyperlipidemia GERD (gastroesophageal reflux disease) Obstructive sleep apnea of adult Restless legs syndrome (RLS) Surgical History Hx of nasal septoplasty (12/11/21) History of carpal tunnel repair (08/07/13) History of carpal tunnel repair (11/07/12) History of knee replacement (08/29/12) Status post cholecystectomy (01/31/12) Status post colonoscopy (08/25/11) Status post rotator cuff repair History of knee replacement Status post hysterectomy History of third molar tooth extraction Status post delivery Status post delivery Status post delivery History of tonsillectomy Family History Brother Age: 65 Diabetes mellitus Depression Kidney disease Brother Age: 63 Depression Brother Age: 61 Depression MS (multiple sclerosis) Father Diabetes mellitus Heart disease Grandfather Alcoholic Smoker Grandmother Colon cancer Alcoholic Smoker Mother Age: 88 Hypertension High cholesterol Grandfather Stomach cancer Heart disease Grandmother Dementia Osteoporosis Sister Age: 59 MS (multiple sclerosis) Social History household members: spouse Smoking Status: Never smoker alcohol intake: never Meds Home Medications and Allergies Home Medications Medication Instructions Recorded Confirmed Type ResMed AirSense 10 Auto CPAP #1 ea 01/02/19 07/29/21 History ascorbic acid (vitamin C) 100 mg 1,000 mg PO BID 01/02/19 01/12/24 History tablet calcium carbonate 600 mg calcium 1,200 mg PO ONCE 01/02/19 01/12/24 History (1,500 mg) tablet (Calcium) cholecalciferol (vitamin D3) 50 2,000 unit PO DAILY 01/02/19 01/12/24 History mcg (2,000 unit) capsule magnesium oxide 800 mg PO DAILY 01/02/19 01/12/24 History omeprazole magnesium 20 mg 20 mg PO DAILY 01/02/19 01/12/24 History tablet,delayed release (Prilosec OTC) rosuvastatin 20 mg tablet 20 mg PO DAILY 01/02/19 01/12/24 History topiramate 50 mg capsule,extended 50 mg PO DAILY 01/02/19 01/12/24 History release 24 hr tramadol 50 mg tablet 50 mg PO Q4-6H PRN Pain 01/02/19 01/12/24 History hydromorphone 4 mg tablet 4 mg PO Q6H PRN Pain 01/22/21 01/12/24 History (Dilaudid) trazodone 150 mg tablet 150 mg PO BEDTIME PRN Sleep 01/22/21 01/12/24 History nitrofurantoin macrocrystal 100 mg 100 mg PO BID PRN Infection 07/29/21 01/12/24 History capsule solifenacin 5 mg tablet (Vesicare) 5 mg PO DAILY 07/29/21 01/12/24 History aripiprazole 2 mg tablet 1 mg PO BEDTIME PRN Restless Leg(S) 12/09/21 01/12/24 History guanfacine 1 mg tablet 2 mg PO BEDTIME 12/13/23 01/12/24 History hydroxyzine HCl 25 mg tablet 25 mg PO Q6H PRN Pain 12/13/23 01/12/24 History losartan 50 mg-hydrochlorothiazide 2 tab PO DAILY 12/13/23 01/12/24 History 12.5 mg tablet meloxicam 15 mg tablet 15 mg PO DAILY 12/13/23 01/12/24 History modafinil 100 mg tablet 100 mg PO QAM 12/13/23 01/12/24 History nitrofurantoin macrocrystal 50 mg 50 mg PO DAILY 12/13/23 01/12/24 History capsule tizanidine 4 mg tablet 8 mg PO BEDTIME 12/13/23 01/12/24 History acetaminophen 500 mg tablet 1,000 mg PO Q6H 01/12/24 01/12/24 History Allergies Allergy/AdvReac Type Severity Reaction Status Date / Time terconazole Allergy Rash Verified 01/12/24 06:47 From NAPROXEN SOD Allergy Severe ANAPHALAXIS Uncoded 12/09/21 13:49 PENICILLIN Allergy Severe ANAPHALAXIS Uncoded 12/09/21 13:49 SULFA Allergy Severe ANAPHALAXIS Uncoded 12/09/21 13:49 CIPROFLOXACIN Allergy Mild ITCH,RASH Uncoded 12/09/21 13:49 From CELEXA Allergy Mild ITCH, RASH Uncoded 12/09/21 13:49 From NYSTATIN AND Allergy Mild ITCHING Uncoded 12/09/21 13:49 TRIAMCINOLONE ACET From PERCOCET Allergy Mild ITCH,RASH Uncoded 12/09/21 13:49 HYDROMORPHONE Allergy Mild HIVES,ITCHING-OK Uncoded 12/13/23 14:15 WITH Hydroxyine ERYTHROMYCIN AdvReac Severe SEVERE Uncoded 12/13/23 14:15 STOMACH UPSET From VICODIN AdvReac Mild N&V, Uncoded 12/13/23 14:15 Hallucinations Review of Systems Review of Systems ROS: Yes All systems reviewed with the patient and are negative except as otherwise documented Exam Vital Signs (past 8 hours): - 01/12/24 07:22 Temperature 97.3 F L Pulse Rate 85 Respiratory Rate 16 Blood Pressure 158/90 H Pulse Oximetry 97 Oxygen Delivery Method Room Air Oxygen Delivery Method Room Air Narrative Exam Narrative: HEENT: Head atraumatic eyes anicteric moist mucous membranes Cardiovascular: Palpable peripheral pulses extremities are warm and well perfused Respiratory: Breathing comfortably on room air Psychiatric: Appropriate mood and affect Neuro: No acute deficits Musculoskeletal: Limited range of motion of the right upper extremity with pain through range of motion. Sensation intact light touch in median, radial, ulnar, axillary nerve distributions. 2+ radial pulse with brisk capillary refill less than 2 seconds. Assessment & Plan Assessment & Plan narrative: Assessment: 68-year-old female with right shoulder glenohumeral arthritis status post rotator cuff repair with failed cuff Plan. To to her failed cuff and glenohumeral arthritis she is indicated for a reverse total shoulder arthroplasty. Risks and benefits of surgery were discussed again including the risk of infection, damage to internal structures, bleeding, nerve injury, instability, need for revision surgery, blood clots, anesthesia and . No guarantees were made regarding outcomes. Patient expressed understanding and accepted these risks and wished to go forward with surgery and consent was signed.
[2024-01-12] MEDS: CEFAZOLIN 2 GM/100 ML PREMIX 100 ML IV (08:12)
--- NOTE | 2024-01-12 08:40 | SUR.OPER ---
Beach chair on padded OR bed. Head on gel donut secured with tape over gauze. Non-operative arm secured <90 degrees abduction on padded arm board. Pillow under knees. Safety belt at thigh. Cloth tape over blanket over lower legs.
[2024-01-12] MEDS: ROPIVACAINE/EPI/CLONIDINE/KET 50 ML SYRINGE INJ (08:48)
--- NOTE | 2024-01-12 09:47 | P.OP_ITS ---
Operative Date/Time/Diagnoses Date of procedure: 01/12/24 Time of procedure: 09:47 Pre-op diagnosis: Right rotator cuff arthropathy Post-op diagnosis: same Procedure & Clinicians Procedure: Right reverse total shoulder arthroplasty Same procedure as scheduled: Yes Indications: Indications: This is a who has rotator cuff arthropathy. Symptoms have been present for years, insidious onset. Patient has failed conservative therapy including injections, physical therapy, anti-inflammatories and activity modification. After extensive discussion in clinic, they wished to go forward with surgery. Risks and benefits were described including the risk of infection, bleeding, damage to internal structures including nerves. We also discussed the risk of failure of surgery and the need for revision surgery as well as the risk of anesthesia. The patient expressed understanding with these risks and wished to go forward with surgery. Surgeon: Oral Tony Web Coordinator: Amarilys Patel Anesthesia Type: General Operative Notes Findings: Findings: Osteoarthritis of the glenoid and humeral head as well as a defient rotator cuff as noted on preoperative imaging and under direct visualization Closure Type: primary Specimen(s): none sent Prosthetic devices, grafts, tissues, transplants, or devices: Tornier implants Base plate: standard 25 mm, +3 mm offset Glenosphere: Standard 36 mm Stem: Perform 2+ Poly: +0 concentric Estimated Blood Loss (mL): 50 Procedure in detail: Patient was seen in the preoperative holding unit. The correct right shoulder was identified and marked with my initials. Again we discussed the risks and benefits of surgery and they wished to go forward with surgery. The patient was brought back to the operating room and placed supine on the operating table. Smooth endotracheal intubation was performed by anesthesia. All prominences were padded and they were placed into the beach chair position. Intravenous antibiotics were given. The right shoulder was then prepped with the standard sterile preparation and draping. A time-out was then performed in my initials were again identified on the correct shoulder. 1 g of IV tranexamic acid was given. A standard deltopectoral incision was made. Skin flaps were made. The cephalic vein was identified and retracted laterally. The vein was torn underneath the retractor and so was tied off. Sharp dissection was made along the deltoid, subacromial and subcoracoid space to release adhesions. The conjoined tendon was identified and the axillary nerve was palpated and continuous using the tug test. It was protected throughout the remainder of the case. A brown retractor was placed underneath the deltoid muscle and a darach retractor underneath the conjoint tendon. The anterior circumflex artery and associated veins on the lower border of the subscapularis were identified and tied off using 0-Vicryl. The biceps tendon was identified in the bicipital groove. This was released from its sheath, and taken from its origin on the glenoid and tied into the pectoralis tendon for a solid tenodesis. We then began a subscapularis peel. The subscapularis was tagged with an Ethibond suture. A 360 degree circumferential release of the subscapularis was performed with protection of the axillary nerve. The coracohumeral ligament was released at the base of the coracoid. The coracoacromial ligament was left intact. The shoulder was then dislocated. Osteophytes were removed using combination of rongeur and osteotome. The rotator cuff was noted to be insufficient. An intramedullary guide was used set at version of 30?. Using an oscillating saw a conservative humeral head cut was made. Impaction reamers were reamed up to a size 2 stem with a built-in angle 135?. A neck protector was placed. Attention was then turned to the glenoid. After retracting the humeral head posteriorly a circumferential release was performed of the capsule with protection of the axillary nerve. The labrum was then released starting at the biceps anchor and going around the rim a small amount of triceps was released from the inferior glenoid. A center guide pin was then placed using the guide, followed by Reamer. After adequate cartilage was removed the center drill hole was drilled and measured. The base plate was then implanted and screwed into place. The superior drill hole was drilled and filled in a nonlocking fashion, followed by the inferior and anterior holes in locking fashion, the posterior hole was also filled. A 36 standard glenosphere was then selected and screwed into place onto the base plate. Turning back to the humerus, the humeral head was delivered and trialed with a 0 concentric. The arm was taken through range of motion and this was felt to be stable. The trial was then removed and a dilute Betadine wash was then performed with 1 L of sterile saline. Before placing the final implant, drill holes were made in the bicipital groove for the subscapularis repair, and sutures were passed through the drill holes. The final stem was then impacted into the humerus. The shoulder was then reduced and again brought through range of motion and was felt to be stable. The interval was then closed using #2 Ethibond. The subscapularis was then repaired using a modified racking hitch with nice loupes. The deltopectoral interval was then closed with #2 Ethibond. The skin was closed with 2-0 Vicryl and Monocryl followed by Aquacel dressing. Patient was awoken from anesthesia and brought back to the postoperative recovery unit without issue. They were placed into a sling. Assisting participation: This operation could not have been safely performed (without compromising the technical results or length of the procedure) without the assistance of a skilled surgical supply assistant. The surgical supply assistant was medically necessary for proper positioning, retraction and manipulation of instruments, proper exposure, graft prep, and manipulation of tissue. Complications: none Post-operative Condition: stable Disposition: PACU Plan for aftercare: Postoperative instructions: Sling to remain on for 6 weeks. No external rotation past neutral for 6 weeks. Okay for the sling to come off for shower. Okay to shower over the Aquacel dressing. If any water gets underneath the dressing, remove the dressing. First postoperative visit in 2 weeks.
[2024-01-12] MEDS: HYDROMORPHONE 2 MG TABLET 4 MG PO (10:13)
[2024-01-12] MEDS: hydrOXYzine 50 MG/ML INJ 25 MG IM (10:46)
[2024-01-12] MEDS: ONDANSETRON 4 MG/2 ML INJ IV (10:46)
--- NOTE | 2024-01-12 11:21 | SUR.PHASEII ---
at bedside to review discharge instructions with patient.
== END 2024-01-12 11:46 | disposition home or self-care (01) ==
LOC: OR 06:35 → AC 06:35
PROVIDERS: Family Provider Internal Medicine; PCP Family Medicine; Referring Provider Orthopaedic Surgery; Visit Provider Orthopaedic Surgery
PROC: (CPT 23472; principal; 2024-01-12 07:45)
DX: M19.011 Primary osteoarthritis, right shoulder (principal); M25.711 Osteophyte, right shoulder
CPT/HCPCS: 23472; 73020; C1776; J0330; J0690; J1100; J1170; J1200; J2250; J2405; J2704; J3010; J3410; J3490

== ENCOUNTER → 2025-04-02 13:36 | Outpatient (CLI) | payer OTHER, SELFPAY ==
--- NOTE | 2025-04-02 13:39 | DI.RAD.S_ITS ---
PROCEDURE: XR LUMBAR SPINE MIN 4V INDICATIONS: BACK PAIN TECHNIQUE: 5 views of the lumbar spine acquired, including flexion and extension views. COMPARISON: [facility], CR, XR LUMBAR SPINE 2-3V, 04/14/2023, 20:29. FINDINGS: Bones: 5 nonrib-bearing vertebrae are present. Disc space narrowing and hypertrophic facet joints noted particularly in the lower spine. No vertebral body compression fractures. No suspicious bony lesions. Grade 1 anterior spondylolisthesis at L4-5 Soft tissues: Overlying bowel gas pattern is normal. No suspicious soft tissue calcifications. Surgical clips in the right upper quadrant. Hepatomegaly. The hepatic shadow extends into the right iliac fossa Flexion/extension: There is normal range of motion, with preserved normal alignment. IMPRESSION: Degenerative disc disease and arthropathy. Grade 1 anterior spondylolisthesis degenerative at L4-5. Hepatomegaly. The hepatic shadow extends into the right iliac fossa. Approved by: Skip Lewis M.D. on 04/02/2025 at 17:04
== END ==
PROVIDERS: Family Provider Internal Medicine; PCP Family Medicine; Referring Provider Physical Medicine & Rehabilitation; Visit Provider Physical Medicine & Rehabilitation
DX: M43.16 Spondylolisthesis, lumbar region (principal); M51.369 Other intervertebral disc degeneration, lumbar region without mention of lumbar back pain or lower extremity pain; M47.816 Spondylosis without myelopathy or radiculopathy, lumbar region; M54.9 Dorsalgia, unspecified; R16.0 Hepatomegaly, not elsewhere classified
CPT/HCPCS: 72110

== ENCOUNTER 2025-04-17 07:30 | Outpatient (CLI) | payer OTHER, SELFPAY ==
[2025-04-17] VITALS (7 sets, daily range): BP systolic 147–176; BP diastolic 78–92; PULSE 70–83; RESP 14–16; TEMP 36.5; O2SAT 94–98
[2025-04-17] MEDS: MIDAZOLAM 2 MG/2 ML VIAL IV (08:30)
[2025-04-17] MEDS: DEXAMETHASONE 10 MG/ML VIAL INJ (08:36)
[2025-04-17] MEDS: iopamidoL 15 ML VIAL 3 ML INJ (08:37)
[2025-04-17] MEDS: BETAMETHASONE 30 MG/5 ML MDV 12 MG INJ (08:37)
[2025-04-17] MEDS: BUPIVACAINE 0.25% (PF) VIAL 2 ML INJ (08:38)
[2025-04-17] MEDS: BETAMETHASONE 30 MG/5 ML MDV 6 MG INJ (08:43)
--- NOTE | 2025-04-17 08:47 | P.PCN_ITS ---
Date/Time/Diagnoses Date of procedure: 04/17/25 Time of procedure: 08:47 Pre-procedure diagnosis: 1. HNP WITH RADICULAR FEATURES, 2. MULTILEVEL CENTRAL STENOSIS, Post-procedure diagnosis: same Procedure Notes Procedure: 1. FLUOROSCOPICALLY GUIDED CONTRAST CONTROLLED INTERLAMINAR EPIDURAL STEROID INJECTION -L4/5 Indications: Ary is referred for treatment of Bilateral Foraminal Stenosis R>L LE symptoms. Physician: Kobe Patterson Total Fluoroscopy time (seconds): 6 Total sedation minutes: 12 Complications: none Procedure in detail & Post-procedure care: FINDINGS Multilevel Central Spinal Stenosis with Nerve Root Compression DESCRIPTION OF PROCEDURE Fluoroscopically guided, contrast-controlled L4/5 translaminar epidural steroid injection. Following review of allergy and review of potential side effects and complications, including, but not necessarily limited to, infection, allergic reaction, local tissue breakdown, temporary as well as permanent nerve injury, paralysis, stroke and possible , the patient indicated that the patient understood and agreed to proceed. An informed consent document was signed by the patient, witnessed by a nurse, and placed in the patient's chart. Additionally, other treatment options including modalities, medications, and physical therapy were reviewed with the patient. After review of previous anaesthesic history and IV conscious sedation the patient was deemed safe to proceed with today?s procedure with IV conscious sedation as ASA class II designation. Safety time-out was performed to confirm patient ID, procedure to be performed and site of procedure. IV sedation was accomplished with a combination of 2mg of Versed was administered by the RN after DO order, titrated to patient comfort during the course of the procedure while the patient remained responsive to all verbal commands In the prone position, following sterile prep and drape of the lumbar region, the L4/5 translaminar space was identified fluoroscopically. The skin was anesthetized via a 25-gauge, 1.5inch needle with 1% lidocaine solution. At this point, a 22-gauge short bevel spinal needle was atraumatically introduced and advanced under fluoroscopic guidance into the region of the L4/5 translaminar space. Depth was confirmed on lateral view. Radiological data, including multiple fluoroscopic views of the lumbar spine, reveal a spinal needle at the L4/5 translaminar space. Lateral views then show placement of the needle in the epidural space. Subsequent views show contrast material flowing superiorly and inferiorly in the epidural space. No vascular or intrathecal uptake is observed. At this point, using loss of resistance technique with saline and air, the epidural space was entered. This was confirmed following negative aspiration with injection of approximately 1.5cc of Isovue 200, showing excellent epidural flow without vascular or intrathecal uptake. At this point, 1cc of 1% lidocaine solution combined with 3cc or 10mg of dexamethasone and 12mg betamethasone was injected without incident. The patient tolerated the procedure well without signs or symptoms of complications prior to transfer to the recovery area continued monitoring without incident. The patient was then transferred to the recovery area where they were observed for an appropriate period of time after the injection. The patient reported a VAS score of 7 prior to the procedure and a post- procedure VAS of 0. POST OP INSTRUCTIONS The patient was provided a Pain Log to continue to record their response to the target-specific procedure prior to follow-up visit with their referring physician. Additionally, specific post-injection care instructions and a contact number to our office were provided if concerns arise regarding possible complications associated with the procedure are suspected.
== END 2025-04-17 09:00 | disposition home or self-care (01) ==
LOC: RAD 07:31
PROVIDERS: Family Provider Internal Medicine; PCP Family Medicine; Referring Provider Physical Medicine & Rehabilitation; Visit Provider Physical Medicine & Rehabilitation
DX: M51.16 Intervertebral disc disorders with radiculopathy, lumbar region (principal); M48.062 Spinal stenosis, lumbar region with neurogenic claudication
CPT/HCPCS: 62323; 99152; J0702; J1100; J2250; J3490

== ENCOUNTER → 2025-06-02 09:19 | Outpatient (CLI) | payer OTHER, SELFPAY ==
--- NOTE | 2025-06-02 09:21 | DI.RAD.S_ITS ---
PROCEDURE: XR ELBOW RT MIN 3V INDICATIONS: R ELBOW PAIN TECHNIQUE: 3 views of the elbow were acquired. COMPARISON: None. FINDINGS: Bones: No fractures or dislocations. Degenerative changes of the lateral epicondyle with associated enthesopathy. No suspicious bony lesions. Soft tissues: No elbow joint effusion. No suspicious soft tissue calcifications. IMPRESSION: Degenerative change without evidence of acute bony abnormality or significant joint effusion. Dictated by: Best Alexandre M.D. on 06/03/2025 at 2:36 Approved by: Best Alexandre M.D. on 06/03/2025 at 3:00
== END ==
PROVIDERS: Family Provider Internal Medicine; PCP Family Medicine; Referring Provider Family Medicine; Visit Provider Family Medicine
DX: M25.521 Pain in right elbow (principal)
CPT/HCPCS: 73080

== ENCOUNTER 2025-08-14 08:04 | Outpatient (CLI) | payer OTHER, SELFPAY ==
[2025-08-14] VITALS (10 sets, daily range): BP systolic 120–159; BP diastolic 72–87; PULSE 60–81; RESP 13–20; TEMP 36.7; O2SAT 96–100
[2025-08-14] MEDS: MIDAZOLAM 2 MG/2 ML VIAL IV (09:33)
[2025-08-14] MEDS: LIDOCAINE 1% 20 ML 5 ML INJ (09:39)
[2025-08-14] MEDS: MIDAZOLAM 2 MG/2 ML VIAL 1 MG IV (09:42)
--- NOTE | 2025-08-14 09:54 | P.PCN_ITS ---
Date/Time/Diagnoses Date of procedure: 08/14/25 Time of procedure: 09:54 Pre-procedure diagnosis: FACET ARTHROPATHY Post-procedure diagnosis: same Procedure Notes Procedure: 1. BILATERAL L3, L4 AND L5 DIAGNOSTIC MB BLOCKS Indications: Ary is referred by Dr. Kam for treatment of Bilateral Axial LBP. Physician: Kobe Patterson Total Fluoroscopy time (seconds): 12 Total sedation minutes: 13 Complications: none Procedure in detail & Post-procedure care: DESCRIPTION OF PROCEDURE Fluoroscopically guided, contrast-controlled bilateral L3, L4 and L5 medial branch blocks with 0.5cc of 0.5% Marcaine. Following review of allergy and review of potential side effects and complications, including, but not necessarily limited to, infection, allergic reaction, local tissue breakdown, nerve injury, paralysis, stroke and possible , the patient indicated that the patient understood and agreed to proceed. An informed consent document was signed by the patient, witnessed by a nurse, and placed in the patient's chart. After review of previous anaesthesic history and IV conscious sedation the patient was deemed safe to proceed with today's procedure with IV conscious sedation as ASA class II designation. Safety time-out was performed to confirm patient ID, procedure to be performed and site of procedure. IV sedation was accomplished with a combination of 3mg of Versed was administered by the RN after DO order, titrated to patient comfort during the course of the procedure while the patient remained responsive to all verbal commands In the prone position, following sterile prep and drape of the lumbar region, the right L3, L4 and L5 anatomical location of the medial branch of the dorsal ramus was identified fluoroscopically. Subsequently an anesthetic skin wheal using 1% lidocaine solution was initiated at each of the anatomical spots. Subsequently then a 22-gauge 3.5-inch spinal needle was atraumatically introduced and advanced under fluoroscopic guidance at each of the corresponding sites at the right L3, L4 and L5 MB. After negative aspiration, 0.2cc of Isovue 200 was injected, confirming placement without vascular or intrathecal uptake. Subsequently then 0.5cc of 0.5% Marcaine solution was injected at each of the corresponding sites at the right L3, L4 and L5 medial branch locations. The identical procedure was replicated on the left. The patient tolerated the proce dure well without signs or symptoms of complications. The patient tolerated the procedure well without signs or symptoms of complications prior to transfer to the recovery area continued monitoring without incident. Post-procedure, the patient was monitored initiating provocative activities to measure the amount of relief from block of the facetogenic pain. The patient reported a VAS of 7 prior to the procedure and a post-procedure VAS of 1. It has been a pleasure to assist in the diagnostic and therapeutic care of your patient. POST OP INSTRUCTIONS The patient was provided with a Pain Log to complete over the next several hours and subsequent days prior to the patient's follow up with the ordering physician. If the patient has statistical clerk advertising relief to the solution applied, then they may be a candidate for medial branch rhizotomy. The patient is aware, was provided, once again, with a Pain Log and will follow up with the referring physician for review and clinical correlation
== END 2025-08-14 10:12 | disposition home or self-care (01) ==
LOC: RAD 08:04
PROVIDERS: Family Provider Internal Medicine; PCP Family Medicine; Referring Provider Family Medicine; Visit Provider Physical Medicine & Rehabilitation
DX: M47.816 Spondylosis without myelopathy or radiculopathy, lumbar region (principal)
CPT/HCPCS: 64493; 64494; 99152; J2250

== ENCOUNTER 2025-09-18 10:18 | Outpatient (CLI) | payer OTHER, SELFPAY ==
[2025-09-18] VITALS (9 sets, daily range): BP systolic 116–158; BP diastolic 69–93; PULSE 68–80; RESP 14–18; TEMP 36.3; O2SAT 94–98
[2025-09-18] MEDS: MIDAZOLAM 2 MG/2 ML VIAL IV (11:28)
[2025-09-18] MEDS: LIDOCAINE 2% INJ MDV 20ML 5 ML INJ (11:32)
[2025-09-18] MEDS: LIDOCAINE 1% 20 ML 5 ML INJ (11:32)
--- NOTE | 2025-09-18 11:45 | PM.PROC.IR.1 ---
Date/Time/Diagnoses Date of procedure: 09/18/25 Time of procedure: 11:45 Pre-procedure diagnosis: 1. FACET ARTHROPATHY Post-procedure diagnosis: same Procedure Notes Procedure: 1. BILATERAL L3, L4 AND L5 DIAGNOSTIC MB BLOCKS Indications: Ary is referred by Dr. Moore for treatment of Bilateral Axial LBP. Physician: Kobe Patterson Total Fluoroscopy time (seconds): 9 Total sedation minutes: 13 Complications: none Procedure in detail & Post-procedure care: DESCRIPTION OF PROCEDURE Fluoroscopically guided, contrast-controlled bilateral L3, L4 and L5 medial branch blocks with 0.5cc of 2% Lidocaine. Following review of allergy and review of potential side effects and complications, including, but not necessarily limited to, infection, allergic reaction, local tissue breakdown, nerve injury, paralysis, stroke and possible , the patient indicated that the patient understood and agreed to proceed. An informed consent document was signed by the patient, witnessed by a nurse, and placed in the patient's chart. After review of previous anaesthesic history and IV conscious sedation the patient was deemed safe to proceed with today's procedure with IV conscious sedation as ASA class II designation. Safety time-out was performed to confirm patient ID, procedure to be performed and site of procedure. IV sedation was accomplished with a combination of 2mg of Versed was administered by the RN after DO order, titrated to patient comfort during the course of the procedure while the patient remained responsive to all verbal commands In the prone position, following sterile prep and drape of the lumbar region, the right L3, L4 and L5 anatomical location of the medial branch of the dorsal ramus was identified fluoroscopically. Subsequently an anesthetic skin wheal using 1% lidocaine solution was initiated at each of the anatomical spots. Subsequently then a 22-gauge 3.5-inch spinal needle was atraumatically introduced and advanced under fluoroscopic guidance at each of the corresponding sites at the right L3, L4 and L5 MB. After negative aspiration, 0.2cc of Isovue 200 was injected, confirming placement without vascular or intrathecal uptake. Subsequently then 0.5cc of 2% Lidocaine solution was injected at each of the corresponding sites at the right L3, L4 and L5 medial branch locations. The identical procedure was replicated on the left. The patient tolerated the procedure well without signs or symptoms of complications. The patient tolerated the procedure well without signs or symptoms of complications prior to transfer to the recovery area continued monitoring without incident. Post-procedure, the patient was monitored initiating provocative activities to measure the amount of relief from block of the facetogenic pain. The patient reported a VAS of 7 prior to the procedure and a post-procedure VAS of 1. It has been a pleasure to assist in the diagnostic and therapeutic care of your patient. POST OP INSTRUCTIONS The patient was provided with a Pain Log to complete over the next several hours and subsequent days prior to the patient's follow up with the ordering physician. If the patient has biodiesel process control technician relief to the solution applied, then they may be a candidate for medial branch rhizotomy. The patient is aware, was provided, once again, with a Pain Log and will follow up with the referring physician for review and clinical correlation
== END 2025-09-18 12:06 | disposition home or self-care (01) ==
LOC: RAD 10:19
PROVIDERS: PCP Family Medicine; Referring Provider Physical Medicine & Rehabilitation; Visit Provider Physical Medicine & Rehabilitation
DX: M47.816 Spondylosis without myelopathy or radiculopathy, lumbar region (principal)
CPT/HCPCS: 64493; 64494; 99152; J2250

== ENCOUNTER 2025-11-06 07:19 | Outpatient (CLI) | payer OTHER, SELFPAY ==
[2025-11-06] VITALS (14 sets, daily range): BP systolic 113–146; BP diastolic 71–89; PULSE 65–97; RESP 16–20; TEMP 37; O2SAT 93–97
[2025-11-06] MEDS: MIDAZOLAM 2 MG/2 ML VIAL IV (08:29)
[2025-11-06] MEDS: fentaNYL 100 MCG/2 ML INJ 50 MCG IV (08:38)
[2025-11-06] MEDS: LIDOCAINE 1% 20 ML 5 ML INJ (08:46)
[2025-11-06] MEDS: MIDAZOLAM 2 MG/2 ML VIAL 1 MG IV (08:55)
--- NOTE | 2025-11-06 09:18 | P.PCN_ITS ---
Date/Time/Diagnoses Date of procedure: 11/06/25 Time of procedure: 09:18 Pre-procedure diagnosis: 1. RECALCITRANT FACET ARTHROPATHY Post-procedure diagnosis: same Procedure Notes Procedure: 1. BILATERAL L3, L4 AND L5 MEDIAL BRANCH RADIOFREQUENCY NEUROTOMY Indications: Ary is referred by Dr. Moore for treatment of facet arthropathy. Physician: Kobe Patterson Total Fluoroscopy time (seconds): 25 Total sedation minutes: 44 Complications: none Procedure in detail & Post-procedure care: DESCRIPTION OF PROCEDURE Bilateral L3, L4 and L5 medial branch radiofrequency neurotomy The patient is well known to this clinic having undergone previous facet injections with good but temporary relief. The patient has experienced appropriate, concordant relief with previous facet and median branch blocks but the patient's pain has been recalcitrant to further conservative measures. Therefore, based upon the patient's relief and persistent symptoms, the patient is considered an appropriate candidate for facet rhizotomy. All of the patient's questions regarding the risks versus benefits of the procedure, including, but not limited to, bleeding, infection, temporary as well as lasting nerve injury, paralysis, stroke, and , as well treatment alternatives were answered to satisfaction. After obtaining informed consent, denial of pertinent drug allergies, as well as being made aware of the potential risks of bleeding, infection, spinal cord trauma, paralysis, temporary and permanent nerve damage, seizure, stroke, and possible , the patient was brought to the fluoroscopy suite and positioned prone on the fluoroscopy table. After review of previous anaesthesic history and IV conscious sedation the patient was deemed safe to proceed with today's procedure with IV conscious sedation as ASA class II designation. Safety time-out was performed to confirm patient ID, procedure to be performed and site of procedure. IV sedation was accomplished with a combination of 2mg of Versed administered by the RN after DO order, titrated to patient comfort during the course of the procedure while the patient remained responsive to all verbal commands. The lumbar region was prepped in usual sterile fashion and covered with a fenestrated drape in the usual sterile fashion. Appropriate monitors applied including pulse oximeter, pulse, and blood pressure for regular monitoring throughout the procedure. After local infiltration using 1% lidocaine, under fluoroscopic guidance, a 10- cm RF insulated needle with a 10-mm active tip was positioned parallel to the junction of the right the superior articulating process where the L5 medial branch resides. Needle placement was confirmed with motor stimulation of .5v on the right which produced local stimulation without radicular component. The stimulation was then increased to 2v with, once again, only local multifidus stimulation without radicular component. The needle was then removed and the identical procedure was performed along the length of the right L4 medial branch with motor stimulation at .7v on the right. The identical procedure was once again performed along the length of the right L3 and medial branch with motor stimulation of .5v on the right. The medial branches were then anesthetised with 0.5% marcaine. This was then followed by two discreet lesions performed at 80 degrees Celsius for 90 seconds each. The identical procedures were repeated on the left. The patient tolerated the procedure well without signs or symptoms of complications prior to transfer to the recovery area continued monitoring witho ut incident. The patient was then transferred to the recovery area where they were observed for an appropriate period of time after the injection. The patient reported a VAS score of 7 prior to the procedure and a post-procedure VAS of 2. POST OP INSTRUCTIONS The patient was provided a Pain Log to continue to record the patient's response to the target-specific procedure prior to the patient's follow-up visit with the referring physician. Additionally, specific post-injection care instructions and a contact number to our office were provided if concerns arise regarding possible complications associated with the procedure are suspected.
== END 2025-11-06 10:42 | disposition home or self-care (01) ==
PROVIDERS: PCP Family Medicine; Referring Provider Physical Medicine & Rehabilitation; Visit Provider Physical Medicine & Rehabilitation
DX: M47.816 Spondylosis without myelopathy or radiculopathy, lumbar region (principal)
CPT/HCPCS: 64635; 64636; 99152; 99153; J2250; J3010